=== PATIENT | female | born 1935 | race Caucasian/White ===

== ENCOUNTER 2022-10-20 06:40 | Day surgery (SDC) | payer MEDICARE, OTHER ==
[~2022-10-20] VITALS: Ht 157.5 cm; Wt 47.2 kg
[~2022-10-20 06:40] MED LIST: ASCO500C3 PO; COQ150CH PO; CYCLOPENTOLATE 1% OPHTH SOLN 2ML BTL OS SCH; KP F1200 PO; MAGN400C PO; OFLOXACIN 0.3 % (OCUFLOX) OPTH SOL 5ML OS SCH; PHENYLEPHRINE 2.5% OPHTH SOL 2ML OS SCH; PROPARACAINE 0.5% OPHTH SOL 15ML OS ONE; TROPICAMIDE 1% OPHTH SOLN 15ML OS SCH; VISION ESSENTIALS PO; [UNRECOGNIZED DRUG - OTHER] PO
[2022-10-20] MEDS ORDERED: LIDOCAINE 1% SDV 5ML VIAL As Ordered ONE (06:47)
[2022-10-20] MEDS ORDERED: TOBRADEX OPHTH OINT 3.5 GM As Ordered ONE (06:47)
[2022-10-20] MEDS ORDERED: BSS IRR 500ML/OMIDRIA 4ML IRR BAG (OR ONLY) As Ordered ONE (06:48)
[2022-10-20] MEDS ORDERED: fentaNYL 100 MCG/2 ML INJECTION As Ordered ONE (06:56)
[2022-10-20] MEDS ORDERED: MIDAZOLAM INJ 2MG/2ML VIAL As Ordered ONE (08:49)
[2022-10-20 09:22] VITALS: BP 127/64; TEMP 98.1; O2SAT 99
== END 2022-10-20 09:39 | disposition home or self-care (01) ==
LOC: M SDC 06:40
PROVIDERS: ATTEND Ophthalmology
DX: H25.12 Age-related nuclear cataract, left eye (principal); F32.A Depression, unspecified; Z79.899 Other long term (current) drug therapy; Z88.0 Allergy status to penicillin
CPT/HCPCS: 66984; J1097; J2250; J3010; V2632

== ENCOUNTER 2023-03-16 07:39 | Day surgery (SDC) | payer MEDICARE, OTHER ==
[~2023-03-16] VITALS: Ht 157.5 cm; Wt 46.7 kg
[~2023-03-16 07:39] MED LIST changes: +ADVI200C18 PO; +BSS IRR 500ML/OMIDRIA 4ML IRR BAG (OR ONLY) As Ordered ONE; +CEFUROXIME 1MG/0.1ML INTRACAMERAL INJ As Ordered ONE; +CYCLOPENTOLATE 1% OPHTH SOLN 2ML BTL OD SCH; -CYCLOPENTOLATE 1% OPHTH SOLN 2ML BTL OS SCH; +LIDOCAINE 1% SDV 5ML VIAL As Ordered ONE; +MOXIFLOXACIN 0.6MG/0.4ML INTRAOCULAR SYRINGE IO ONE; +OFLOXACIN 0.3 % (OCUFLOX) OPTH SOL 5ML OD SCH; -OFLOXACIN 0.3 % (OCUFLOX) OPTH SOL 5ML OS SCH; +PHENYLEPHRINE 2.5% OPHTH SOL 2ML OD SCH; -PHENYLEPHRINE 2.5% OPHTH SOL 2ML OS SCH; +PROPARACAINE 0.5% OPHTH SOL 15ML OD ONE; -PROPARACAINE 0.5% OPHTH SOL 15ML OS ONE; +TROPICAMIDE 1% OPHTH SOLN 15ML OD SCH; -TROPICAMIDE 1% OPHTH SOLN 15ML OS SCH
[2023-03-16] MEDS ORDERED: fentaNYL 100 MCG/2 ML INJECTION As Ordered ONE (08:03)
[2023-03-16 10:12] VITALS: BP 142/82; TEMP 97.6; O2SAT 97
== END 2023-03-16 10:30 | disposition home or self-care (01) ==
LOC: M SDC 07:39
PROVIDERS: ATTEND Ophthalmology
DX: H25.11 Age-related nuclear cataract, right eye (principal); I49.9 Cardiac arrhythmia, unspecified; Z88.0 Allergy status to penicillin; Z98.42 Cataract extraction status, left eye
CPT/HCPCS: 66984; J1097; J3010; V2632